=== PATIENT | female | born 1985 | race Caucasian/White ===

== ENCOUNTER 2017-03-27 21:00 | Emergency (ER) | payer MEDICAID ==
[~2017-03-27] VITALS: Ht 142.2 cm; Wt 67.0 kg
[~2017-03-27 21:00] MED LIST: FERR27TA PO; PREN1TAB49 PO
[2017-03-27 21:07] VITALS: Ht 142.2 cm; Wt 67.0 kg
[2017-03-27] MEDS ORDERED: HC1C30 TOP (22:00)
[2017-03-27] MEDS ORDERED: BEN25 PO (22:00)
--- NOTE | 2017-03-29 17:21 | ERD ---
ER Documentation Chief Complaint Date/Time DATE: 03/29/17 TIME: 17:18 Chief Complaint RIGHT SHOULDER AND ARM PAIN X 1 MONTH, FINGERS ITCHY HPI This patient is a 32-year-old female presenting to the emergency department with complaints of bilateral hand itching for 1 month intermittently. Symptoms have not improved. The patient works in [employer] and comes in contact with many fruits. She also washes her hands frequently. She reports itching, swelling, and redness to her bilateral hands. Patient is right-hand dominant. The patient denies falls, trauma, chest pain, shortness of breath, tingling in her fingers, or other symptoms. She has tried [id number] creams with no relief. ROS All systems reviewed and are negative except as per history of present illness. Medications Home Meds Active Scripts Hydrocortisone* Topical (Hydrocortisone* Topical) 1%-28.35 Gm Cream..g., 1 APPLIC TOP Q6 Y for ITCHING, #1 TUB Prov:MERCEDES CHAMPAGNE PA-C 03/27/17 Diphenhydramine Hcl* (Benadryl*) 25 Mg Cap, 25 MG PO Q6, #30 CAP Prov:MERCEDES CHAMPAGNE PA-C 03/27/17 Reported Medications Ferrous Sulfate (Iron) 1 Tab Tablet, 1 TAB PO DAILY, #1 09/05/12 Vits W-Ca,Fe,Fa(<1MG) () 1 Tab Tablet, 1 TAB PO DAILY 04/03/12 [None] No Conflict Check 11/27/10 Allergies Allergies: Coded Allergies: No Known Allergy (Verified , 03/27/17) PMhx/Soc History of Surgery: Yes (CS X1) Anesthesia Reaction: No Hx Neurological Disorder: No Hx Respiratory Disorders: No Hx Cardiac Disorders: No Hx Psychiatric Problems: No Hx Miscellaneous Medical Probl: No Hx Alcohol Use: No Hx Substance Use: No Hx Tobacco Use: No Physical Exam Vitals Vital Signs Date Time Temp Pulse Resp B/P Pulse Ox O2 Delivery O2 Flow Rate FiO2 03/27/17 21:07 97.8 65 17 109/61 98 Physical Exam Const: Nontoxic, well-appearing female in no acute distress. Head: Atraumatic Eyes: Normal Conjunctiva ENT: Normal External Ears, Nose and Mouth. Neck: Full range of motion..~ No meningismus. Resp: Clear to auscultation bilaterally Cardio: Regular rate and rhythm, no murmurs Abd: Soft, non tender, non distended. Normal bowel sounds Skin: There is mild redness with some excoriations noted to the hands bilaterally. There is no warmth, vesicles, or other significant skin findings. Back: No midline or flank tenderness Ext: No cyanosis, or edema Neur: Awake and alert Psych: Normal Mood and Affect Procedures/MDM 32-year-old female presents to the emergency department with complaints of bilateral hand itching, swelling, and redness. Exam is consistent with possible irritant contact dermatitis. Other differentials include cellulitis, allergic reaction, and others. I have low suspicion for infectious etiology. The patient is stable for outpatient management with a prescription for Benadryl and topical hydrocortisone. Close follow-up with the primary care physician was advised. Strict ER return parameters were discussed and the patient demonstrated good understanding of the information. Departure Diagnosis: Primary Impression: Irritant contact dermatitis Condition: Fair Patient Instructions: Contact Dermatitis [facility] Usted se levine hecho un examen mdico de control que le indica que no est en anusha condicin que requiera tratamiento urgente en el Departamento de Emergencia. Un estudio ms profundo y el tratamiento de gerardo condicin pueden esperar sin ningn riesgo hasta que usted sea atendida/o en el consultorio de gerardo mdico o anusha cl adriana. Es responsabilidad suya arreglar anusha kathryn para el seguimiento del lo. MANEJO DE CONDICIONES NO URGENTES EN EL FUTURO 1) Si usted tiene un mdico de atencin primaria: Usted debera llamar a gerardo mdico de atencin primaria antes de venir al departamento de emergencia. Despus de las horas de consultorio, gerardo doctor o gerardo asociado/a est disponible por telfono. El mdico o enfermero de boogie en el servicio telefnico puede asesorarle por smith medio para atender el problema, o lo contrario se puede programar anusha kathryn. 2) Si usted no tiene un mdico de atencin primaria: Llame al mdico o clnica de referencia que aparece abajo joan las horas de consultorio para hacer anusha kathryn para que le vean. CLINICAS: [facility] [phone] [facility] [phone] [facility] [phone] [place] [id number] [phone] [place] [address] [phone] [facility]. [phone] [address] Additional Instructions: No mas mejor en 2-3 garcia, regresar. Mas peor en 24 horas, regresear rapidamente. Ir a doctor primario in 5-7 garcia. Usar instrucciones cuando noreen medicamento. MERCEDES CHAMPAGNE PA-C Mar 29, 2017 17:21
== END 2017-03-27 22:16 | disposition home or self-care (01) ==
LOC: FTE 21:00
DX: L24.9 Irritant contact dermatitis, unspecified cause (principal)
CPT/HCPCS: 99282

== ENCOUNTER 2019-02-17 22:59 | Emergency (ER) | payer MEDICAID ==
[~2019-02-17] VITALS: Ht 160 cm; Wt 72.1 kg
[~2019-02-17 22:59] MED LIST changes: +BEN25 PO; +HC1C30 TOP
[2019-02-17 23:02] VITALS: Ht 160 cm; Wt 72.1 kg
[2019-02-17] MEDS ORDERED: ACETAMINOPHEN 325 MG TAB PO STA (23:36)
--- NOTE | 2019-02-18 00:49 | ERD ---
ER Documentation Chief Complaint Chief Complaint pt c/o AP, last period 01/19/19 HPI 33-year-old female who is G2, P2 presenting to the emergency department complaint of pelvic pain for the past 3 days. She states the pain is cramping and sharp in nature. Her last menstrual cycle was 01/19/2019. She denies any vaginal bleeding, abdominal pain, nausea, vomiting, diarrhea, or other symptoms at this time. ROS All systems reviewed and are negative except as per history of present illness. Medications Home Meds Active Scripts Cephalexin* (Keflex*) 500 Mg Capsule, 500 MG PO QID for 7 Days, CAP Prov:MERCEDES CHAMPAGNE PA-C 02/18/19 Hydrocortisone* Topical (Hydrocortisone* Topical) 1%-28.35 Gm Cream..g., 1 APPLIC TOP Q6 PRN for ITCHING, #1 TUB Prov:MERCEDES CHAMPAGNE PA-C 03/27/17 Diphenhydramine Hcl* (Benadryl*) 25 Mg Cap, 25 MG PO Q6, #30 CAP Prov:MERCEDES CHAMPAGNE PA-C 03/27/17 Reported Medications Ferrous Sulfate (Iron) 1 Tab Tablet, 1 TAB PO DAILY, #1 09/05/12 Vits W-Ca,Fe,Fa(<1MG) () 1 Tab Tablet, 1 TAB PO DAILY 04/03/12 [None] No Conflict Check 11/27/10 Allergies Allergies: Coded Allergies: No Known Allergy (Verified , 03/27/17) PMhx/Soc History of Surgery: Yes (CS X1) Anesthesia Reaction: No Hx Neurological Disorder: No Hx Respiratory Disorders: No Hx Cardiac Disorders: No Hx Psychiatric Problems: No Hx Miscellaneous Medical Probl: No Hx Alcohol Use: No Hx Substance Use: No Hx Tobacco Use: No Smoking Status: Never smoker FmHx Family History: No diabetes Physical Exam Vitals Vital Signs Date Temp Pulse Resp B/P (MAP) Pulse Ox O2 O2 Flow FiO2 Time Delivery Rate 02/18/19 97.8 78 18 120/74 100 Room Air 01:36 (89) 02/17/19 97.6 81 16 122/63 100 23:02 (82) Physical Exam Const: No acute distress Head: Atraumatic Eyes: Normal Conjunctiva ENT: Normal External Ears, Nose and Mouth. Neck: Full range of motion. No meningismus. Resp: Clear to auscultation bilaterally Cardio: Regular rate and rhythm, no murmurs Abd: Soft, non tender, non distended. Normal bowel sounds. Tenderness palpation of the pelvic region bilaterally. There is no rebound tenderness or guarding. No McBurney's point tenderness. Skin: No petechiae or rashes Back: No midline or flank tenderness Ext: No cyanosis, or edema Neur: Awake and alert Psych: Normal Mood and Affect Result Diagram: 02/17/19 2346 02/17/19 2346 Results 24 hrs Laboratory Tests Test 02/17/19 23:45 02/17/19 23:46 Beta HCG, Quantitative < 2.4 mIU/ml White Blood Count 8.5 10^3/ul Red Blood Count 4.15 10^6/ul Hemoglobin 11.2 g/dl Hematocrit 35.1 % Mean Corpuscular Volume 84.6 fl Mean Corpuscular Hemoglobin 27.0 pg Mean Corpuscular Hemoglobin Concent 31.9 g/dl Red Cell Distribution Width 13.2 % Platelet Count 330 10^3/UL Mean Platelet Volume 9.9 fl Immature Granulocytes % 0.200 % Neutrophils % 51.2 % Lymphocytes % 34.6 % Monocytes % 4.8 % Eosinophils % 8.6 % Basophils % 0.6 % Nucleated Red Blood Cells % 0.0 /100WBC Immature Granulocytes # 0.020 10^3/ul Neutrophils # 4.4 10^3/ul Lymphocytes # 3.0 10^3/ul Monocytes # 0.4 10^3/ul Eosinophils # 0.7 10^3/ul Basophils # 0.1 10^3/ul Nucleated Red Blood Cells # 0.0 10^3/ul Urine Color STRAW Urine Clarity SLIGHTLY CLOUDY Urine pH 7.0 Urine Specific Hoven 1.005 Urine Ketones NEGATIVE mg/dL Urine Nitrite NEGATIVE mg/dL Urine Bilirubin NEGATIVE mg/dL Urine Urobilinogen NEGATIVE mg/dL Urine Leukocyte Esterase 2+ Arturo/ul Urine Microscopic RBC 1 /HPF Urine Microscopic WBC 7 /HPF Urine Squamous Epithelial Cells FEW /HPF Urine Bacteria FEW /HPF Urine Hemoglobin 1+ mg/dL Urine Glucose 3+ mg/dL Urine Total Protein NEGATIVE mg/dl Sodium Level 138 mmol/L Potassium Level 4.0 mmol/L Chloride Level 102 mmol/L Carbon Dioxide Level 27 mmol/L Anion Gap 9 Blood Urea Nitrogen 9 mg/dl Creatinine 0.93 mg/dl Est Glomerular Filtrat Rate mL/min > 60 mL/min Glucose Level 306 mg/dl Calcium Level 9.3 mg/dl Total Bilirubin 0.3 mg/dl Direct Bilirubin 0.00 mg/dl Indirect Bilirubin 0.3 mg/dl Aspartate Amino Transf (AST/SGOT) 58 IU/L Alanine Aminotransferase (ALT/SGPT) 64 IU/L Alkaline Phosphatase 132 IU/L Total Protein 7.6 g/dl Albumin 4.4 g/dl Globulin 3.20 g/dl Albumin/Globulin Ratio 1.37 Current Medications Medications Dose Sig/Torri Start Time Status Last (Trade) Ordered Route PRN Stop Time Admin Dose Reason Admin 650 mg ONCE STAT 02/17/19 DC 02/18/19 Acetaminophen PO 23:36 01:21 (Tylenol 02/17/19 23:39 Tab) [place] [id number] Radiology Main Line: [phone] DIAGNOSTIC IMAGING REPORT Patient: CHAVO NAGEL : 1985 Age: 33 Sex: F MR #: [id number] DOS: 02/17/19 2336 Ordering MD: MERCEDES CHAMPAGNE PA-C Location: [facility] Room/Bed: PROCEDURE: US OB Pelvis. CLINICAL INDICATION: , pelvic pain. TECHNIQUE: Multiple sonographic images of the pelvis were obtained utilizing a transabdominal technique. The images were reviewed on a PACS workstation. COMPARISON: None. FINDINGS: The uterus is not well seen. No intrauterine is identified. The ovaries are not visualized. No adnexal masses are noted. There is no free fluid. IMPRESSION: Markedly limited transabdominal ultrasound. The uterus is not well seen and no intrauterine is identified. If there is clinical concern for ectopic , close follow-up with serial Bet a HCG and possible repeat pelvic ultrasound is recommended. The ovaries are not visualized. RPTAT: HTAR .Onofre Hutchinson MD, MD Date Time Electronically viewed and signed by .Onofre Hutchinson MD, MD on 02/18/2019 01:20 .R/ CC: MERCEDES CHAMPAGNE PA-C [id number] Procedures/MDM 33-year-old female presented to the emergency department complaining of pelvic pain. Patient's hCG was negative. Urinalysis showed findings consistent with urinary tract infection. Patient was nontoxic and well-appearing and afebrile. Low suspicion for pyelonephritis, sepsis, or other emergencies. Pelvic ultrasound revealed no significant acute abnormalities. Patient symptoms likely secondary to urinary tract infection. She was stable and appropriate for discharge and further outpatient management with prescriptions. She was advised to return to the department immediately for any new or worsening or concerning symptoms. She was in agreement with the diagnosis, plan, need for follow-up, and return precautions. Departure Diagnosis: Primary Impression: UTI (urinary tract infection) Condition: Fair Patient Instructions: Understanding Urinary Tract Infections (UTIs) MERCEDES CHAMPAGNE PA-C February 18, 2019 00:49
[2019-02-18] MEDS ORDERED: CEPH-443 PO (01:27)
[2019-02-18 01:36] VITALS: BP 120/74; PULSE 78; RESP 18
== END 2019-02-18 01:39 | disposition home or self-care (01) ==
LOC: FTE 22:59
DX: N39.0 Urinary tract infection, site not specified (principal); R10.2 Pelvic and perineal pain
CPT/HCPCS: 76801; 80053; 81001; 84702; 85025; 86900; 86901; Z7610; 36415